=== PATIENT | female | born 1985 | race Caucasian/White ===

== ENCOUNTER 2018-09-07 07:35 | Inpatient (IN) | payer OTHER ==
[~2018-09-07] VITALS: Ht 157.5 cm; Wt 50.8 kg
[~2018-09-07 07:35] MED LIST: PRENATAL TABLE1 EAC3 PO
== END 2018-09-11 11:23 | DRG 805 ==
LOC: LDR 07:35 → OB/GYN 07:35
PROVIDERS: ADMIT Obstetrics & Gynecology
PROC: 10E0XZZ Delivery of Products of Conception, External Approach (ICD-10-PCS; principal; 2018-09-07)
PROC: 0KQM0ZZ Repair Perineum Muscle, Open Approach (ICD-10-PCS; 2018-09-07)
PROC: 4A1HXCZ Monitoring of Products of Conception, Cardiac Rate, External Approach (ICD-10-PCS; 2018-09-07)
DX: O70.1 Second degree perineal laceration during delivery (principal); O60.14X0 Preterm labor third trimester with preterm delivery third trimester, not applicable or unspecified; Z37.0 Single live birth; Z3A.36 36 weeks gestation of pregnancy